=== PATIENT | male | born 1985 ===

== ENCOUNTER 2024-06-30 15:21 | Emergency (ER) | payer OTHER, SELFPAY ==
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
[2024-06-30 15:36] VITALS: BP 118/72; PULSE 64; RESP 18; TEMP 36.6; O2SAT 99; BMI 31.5
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
[2024-06-30] MEDS: Ibuprofen 600 MG TABLET PO (16:05)
[2024-06-30] MEDS: Acetaminophen 325 MG TABLET 975 MG PO (16:05)
[2024-06-30 16:12] VITALS: BP 133/78; PULSE 54; RESP 16; O2SAT 99
[2024-06-30 16:28] VITALS: BP 133/78; PULSE 54; RESP 16; TEMP 36.2; O2SAT 99
== END 2024-06-30 16:29 | disposition home or self-care (01) ==
PROVIDERS: Emergency Provider Emergency Medicine Emergency Medical Services
DX: S39.012A Strain of muscle, fascia and tendon of lower back, initial encounter (principal); V73.6XXA Passenger on bus injured in collision with car, pick-up truck or van in traffic accident, initial encounter; M54.50 Low back pain, unspecified; Y93.89 Activity, other specified; Y92.811 Bus as the place of occurrence of the external cause; Y99.9 Unspecified external cause status
CPT/HCPCS: 72100; 99283; 99284

== ENCOUNTER → 2024-06-30 15:39 | Outpatient (BNV) | payer OTHER, SELFPAY | PROVIDERS: Emergency Provider Emergency Medicine Emergency Medical Services; Visit Provider Radiology Diagnostic Radiology | DX: M54.50 Low back pain, unspecified (principal); V89.2XXA Person injured in unspecified motor-vehicle accident, traffic, initial encounter | CPT/HCPCS: 72100 ==